=== PATIENT | female | born 1970 | race American Indian/Alaskan Native ===

== ENCOUNTER 2022-04-25 06:41 | Emergency (ER) | payer OTHER ==
[2022-04-25 10:54] LABS: Basophils % (Auto) 0.5 % (0.0-1.8); Eosinophils % (Auto) 0.7 % (0.0-4.3); Hemoglobin 8.5 gm/dl (10.1-14.3); Lymphocytes # (Auto) 0.9 K/mm3 (1.2-5.4); Lymphocytes % (Auto) 13.3 % (13.4-35.0); Mean Corpuscular HGB Conc 32 % (30-34); Mean Corpuscular Volume 75 fl (79-97); Monocytes # (Auto) 0.4 K/mm3 (0.0-0.8); Monocytes % (Auto) 6.9 % (0.0-7.3); Platelet Count 143 K/mm3 (140-440); Red Blood Count 3.59 M/mm3 (3.65-5.03); Red Cell Distribution Width 19.7 % (13.2-15.2)
[2022-04-25] MEDS ORDERED: SODIUM CHLORIDE 0.9% 1000 ML 1,000 ML IV ONE (13:00)
--- NOTE | 2022-04-25 13:31 | Emergency Department Report ---
ED Female HPI - General Chief complaint: Vaginal Bleeding Stated complaint: HEAVY VAG BLEEDING Time Seen by Provider: 04/25/22 12:56 Source: patient Mode of arrival: Ambulatory Limitations: No Limitations - History of Present Illness Initial comments: 52 yo F who present with vaginal bleeding that started last night and progressively getting worse. Pt reports 8 pads that started since midnight. No fever or chills reported. No other modifying or associated factors. - Related Data Previous Rx's Medication Instructions Recorded Last Taken Type Docusate Sodium [Colace] 100 mg PO BID PRN 5 Days #10 04/25/22 Unknown Rx capsule NS HYDROcodone/APAP 5-325 [Leeds 1 each PO Q6HR PRN 3 Days #12 04/25/22 Unknown Rx 5/325] tablet NS Ondansetron (Nf) [Zofran TAB] 8 mg PO Q8HR PRN 5 Days #15 tablet 04/25/22 Unknown Rx NS medroxyPROGESTERone ACETATE 10 mg PO DAILY 5 Days #5 tab NS 04/25/22 Unknown Rx [Provera] Allergies Allergy/AdvReac Type Severity Reaction Status Date / Time No Known Allergies Allergy Unverified 04/25/22 07:16 ED Review of Systems ROS: Stated complaint: HEAVY VAG BLEEDING Other details as noted in HPI Comment: All other systems reviewed and negative Genitourinary: abnormal menses. denies: urgency, dysuria, frequency, hematuria ED Past Medical Hx - Past Medical History Previous Medical History?: No - Surgical History Past Surgical History?: No - Medications Home Medications: Home Medications Medication Instructions Recorded Confirmed Last Taken Type Docusate Sodium [Colace] 100 mg PO BID PRN 5 Days #10 04/25/22 Unknown Rx capsule NS HYDROcodone/APAP 5-325 [Leeds 1 each PO Q6HR PRN 3 Days #12 04/25/22 Unknown Rx 5/325] tablet NS Ondansetron (Nf) [Zofran TAB] 8 mg PO Q8HR PRN 5 Days #15 tablet 04/25/22 Unknown Rx NS medroxyPROGESTERone ACETATE 10 mg PO DAILY 5 Days #5 tab NS 04/25/22 Unknown Rx [Provera] ED Physical Exam - General Limitations: No Limitations General appearance: alert, in no apparent distress - Head Head exam: Present: normal inspection - Eye Eye exam: Present: normal appearance. Absent: conjunctival injection Pupils: Present: normal accommodation - ENT ENT exam: Present: normal exam, normal orophraynx, mucous membranes moist - Neck Neck exam: Present: normal inspection, full ROM. Absent: tenderness - Respiratory Respiratory exam: Present: normal lung sounds bilaterally. Absent: respiratory distress, accessory muscle use - Cardiovascular Cardiovascular Exam: Present: regular rate, normal rhythm, normal heart sounds - GI/Abdominal GI/Abdominal exam: Present: soft, normal bowel sounds. Absent: distended, tenderness - Extremities Exam Extremities exam: Present: normal inspection, full ROM, normal capillary refill. Absent: tenderness, pedal edema, joint swelling - Back Exam Back exam: Present: normal inspection. Absent: tenderness, CVA tenderness (R), CVA tenderness (L) - Neurological Exam Neurological exam: Present: alert, oriented X3 - Psychiatric Psychiatric exam: Present: normal affect, normal mood - Skin Skin exam: Present: warm, normal color. Absent: pallor ED Course Vital Signs 04/25/22 04/25/22 04/25/22 07:15 12:15 12:31 Temperature 97.7 F Pulse Rate 82 87 81 Respiratory 20 22 11 L Rate Blood Pressure 127/74 Blood Pressure 127/74 [Left] O2 Sat by Pulse 99 91 100 Oximetry 04/25/22 04/25/22 04/25/22 12:45 13:01 13:15 Temperature Pulse Rate 76 78 Respiratory 17 16 16 Rate Blood Pressure 96/45 96/45 111/58 Blood Pressure [Left] O2 Sat by Pulse 100 100 Oximetry 04/25/22 04/25/22 04/25/22 13:31 13:45 14:01 Temperature Pulse Rate Respiratory 21 23 24 Rate Blood Pressure 111/58 65/45 65/45 Blood Pressure [Left] O2 Sat by Pulse Oximetry 04/25/22 04/25/22 04/25/22 14:15 14:45 15:01 Temperature Pulse Rate 86 77 Respiratory 28 H 16 18 Rate Blood Pressure 105/65 105/65 Blood Pressure [Left] O2 Sat by Pulse 100 100 Oximetry 04/25/22 04/25/22 15:15 15:31 Temperature Pulse Rate 84 82 Respiratory 10 L 9 L Rate Blood Pressure 106/62 110/64 Blood Pressure [Left] O2 Sat by Pulse 100 100 Oximetry ED Medical Decision Making - Lab Data Result diagrams: 04/25/22 09:49 04/25/22 13:05 - Medical Decision Making here with heavy vaginal bleeding -- this could be as a result of her heavy menstrual period vs DUB -- so will go ahead and order CBC, CMP and UA with serum hCG to rule out infectious process or electrolytes abnormality or . In the meantime will give ivf ns 1L bolus x 1-- while waiting for above-- Noted with low H&H 8.5/27 mg/dl unsure if acute as there is no previous visit number so will assume acute. Unlikely to be chronic especially with normal renal function-- given premarin 25 mg IM x 1-- and will continue to monitor. 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 ED Disposition Clinical Impression: DUB (dysfunctional uterine bleeding) Heavy menstrual bleeding Qualifiers: Menorrhagia type: with onset of menstrual periods Qualified Code(s): N92.2 - Excessive menstruation at puberty Disposition: 01 HOME / SELF CARE / HOMELESS Is pt being admited?: No Does the pt Need Aspirin: No Condition: Stable Instructions: Abnormal Uterine Bleeding, [id number], Metrorrhagia, [id number] Additional Instructions: Take your new medication Provera 10 mg p.o. daily for the next 5 days to continue to help your symptoms Please do not hesitate to call and follow-up with your FRAME EXPANDER in the next 3 to 5 days for progress Please do not hesitate to call or return to emergency room if your bleeding become progressively worsening or if you are changing or saturating your pad twice an hour Increase your daily fluid to help your hydration Prescriptions: Docusate Sodium [Colace] 100 mg PO BID PRN 5 Days #10 capsule NS PRN Reason: Constipation HYDROcodone/APAP 5-325 [Leeds 5/325] 1 each PO Q6HR PRN 3 Days #12 tablet NS PRN Reason: Pain medroxyPROGESTERone ACETATE [Provera] 10 mg PO DAILY 5 Days #5 tab NS Ondansetron (Nf) [Zofran TAB] 8 mg PO Q8HR PRN 5 Days #15 tablet NS PRN Reason: Nausea And Vomiting Referrals: PRIMARY CARE, [Primary Care Provider] - 3-5 Days Time of Disposition: 16:42
[2022-04-25 13:34] LABS: INR 1.06 (0.87-1.13)
[2022-04-25 13:35] LABS: Partial Thromboplastin Time 25.4 Sec. (24.2-36.6)
[2022-04-25 13:41] LABS: Alanine Aminotransferase 8 units/L (7-56); Blood Urea Nitrogen 10 mg/dL (7-17); Calcium 8.9 mg/dL (8.4-10.2); Hemolysis Index 2
[2022-04-25 13:42] LABS: BUN/Creatinine Ratio 14
--- NOTE | 2022-04-25 13:48 | XRay Report ---
CHEST 1 VIEW 04/25/2022 1:11 PM INDICATION / CLINICAL INFORMATION: syncope. COMPARISON: None available. FINDINGS: SUPPORT DEVICES: None. HEART / MEDIASTINUM: No significant abnormality. LUNGS / PLEURA: No significant pulmonary or pleural abnormality. No pneumothorax. ADDITIONAL FINDINGS: No significant additional findings. IMPRESSION: 1. No acute findings. Signer Name: Fritz Weinstein MD Signed: 04/25/2022 1:43 PM Workstation Name: [id number]
[2022-04-25] MEDS ORDERED: ONDANSETRON 4 MG/2 ML INJ IV ONE (15:05)
[2022-04-25] MEDS ORDERED: MORPHINE 4 MG/1 ML INJ IV ONE (15:05)
[2022-04-25] MEDS ORDERED: ESTROGENS, CONJUGATED 25 MG INJ IV ONE (17:00)
[2022-04-25 18:24] VITALS: BP 103/66
== END 2022-04-25 18:20 | disposition home or self-care (01) ==
LOC: ED 06:41
DX: N92.0 Excessive and frequent menstruation with regular cycle (principal); N93.8 Other specified abnormal uterine and vaginal bleeding; R79.1 Abnormal coagulation profile; Z79.899 Other long term (current) drug therapy
CPT/HCPCS: 36415; 71045; 80053; 83690; 83880; 84484; 84550; 84702; 84703; 85025; 85610; 85730; 86900; 86901; 96361; 96374; 96375; 99284; J1410; J2270; J2405; J7030